=== PATIENT | female | born 1985 | race Two or more races ===

== ENCOUNTER 2016-10-24 01:47 | Inpatient (IN) | payer OTHER ==
[2016-10-24 02:51] LABS: BASOPHIL 0.2 % (0-2.0); EOSINOPHIL 0.2 % (0-4.5); MCHC 31.9 g/dl (32.0-36.0); MEAN CELL VOLUME 69.1 fl (80-96); MEAN PLT VOLUME 9.9 fl (7.5-11.1); NEUTROPHILS 78.4 % (42.8-82.8); PLATELET COUNT 164 K/MM3 (134-434); RDW 17.3 % (11.6-15.6); WHITE BLOOD COUNT 9.4 K/mm3 (4.0-10.0)
[2016-10-24 03:11] LABS: CALCIUM 8.6 mg/dL (8.5-10.1); CREATININE 0.5 mg/dL (0.55-1.02)
[2016-10-24] MEDS ORDERED: AMPICILLIN - 2 GM in SODIUM CHLORIDE 100 ML IVPB ONE (03:13)
[2016-10-24] MEDS ORDERED: BUTORPHANOL TARTRATE 1 MG/ML VIAL IVPUSH ONE (03:13)
[2016-10-24] MEDS ORDERED: PROMETHAZINE HCL 25 MG/1 ML VIAL IVPUSH ONE (03:13)
[2016-10-24] MEDS ORDERED: OXYTOCIN 15 UNITS/ LR 250 ML 250 ML IVPB SCH (03:15)
[2016-10-24] MEDS ORDERED: DEXTROSE 5%-LACTATED RINGERS 1,000 ML IV SCH (03:15)
--- NOTE | 2016-10-24 03:17 | PN ---
Progress Note (short form) - Note Progress Note: 3 am cx 8 cm 100 vx 0 , membrane bulging, fhr cat1 ,contraction irregular. wants pain meds
--- NOTE | 2016-10-24 03:31 | HP ---
Past Medical History - Primary Care Physician PCP:: Alvin Joe - Admission Chief Complaint: 39 weeks ,labor History of Present Illness: 30 yo f 39 + weeks, in labor, cx 8 cm 100 vx 0 mi ,bulging, fhr cat 1, irregular contraction History Source: Patient Limitations to Obtaining History: No Limitations - Past Surgical History Hx Myomectomy: No Hx Transabdominal Cerclage: No - Smoking History Smoking history: Smoker current status UNK Have you smoked in the past 12 months: No - Alcohol/Substance Use Hx Alcohol Use: No History of Substance Use: reports: None - Social History Usual Living Arrangement: Yes: With Spouse History of Recent Travel: No Home Medications - Allergies Allergies/Adverse Reactions: Allergies Allergy/AdvReac Type Severity Reaction Status Date / Time No Known Allergies Allergy Verified 10/24/16 02:45 - Home Medications Home Medications: Ambulatory Orders Ferrous Sulfate [Feosol] 325 mg PO DAILY 10/24/16 Vitamins (Sjr) - 1 tab PO DAILY 10/24/16 Review of Systems - Review of Systems Constitutional: reports: No Symptoms Eyes: reports: No Symptoms HENT: reports: No Symptoms Neck: reports: No Symptoms Cardiovascular: reports: No Symptoms Respiratory: reports: No Symptoms Gastrointestinal: reports: No Symptoms Genitourinary: reports: No Symptoms Breasts: reports: No Symptoms Reported Musculoskeletal: reports: No Symptoms Integumentary: reports: No Symptoms Neurological: reports: No Symptoms Endocrine: reports: No Symptoms Hematology/Lymphatic: reports: No Symptoms Psychiatric: reports: No Symptoms Physical Exam - Maternity Constitutional: Yes: Well Nourished, No Distress, Calm Eyes: Yes: WNL, Conjunctiva Clear, EOM Intact HENT: Yes: WNL, Atraumatic, Normocephalic Neck: Yes: WNL, Supple, Trachea Midline Cardiovascular: Yes: WNL, Regular Rate and Rhythm Breast(s): Yes: WNL - Abdominal Exam/OB Fundal Height: 40 Number of Fetuses: Single Presentation: Vertex Contractions: Yes Regularity: Irregular Intensity: Mod/Strong Monitor Mode: External Heart Rate Location: [facility] Category: I Accelerations: Uniform Decelerations: None - Vaginal Exam/OB Vaginal Bleediing: Bloody Show Speculum Exam: No Dilatation (cm): 8 cm Effacement (%): 100 Amniotic Membrane Status: Bulging Presentation: Vertex/Position Station: 0 - Physical Exam Musculoskeletal: Yes: WNL Extremities: Yes: WNL Edema: Yes Edema: LLE: Trace, RLE: Trace Deep Tendon Reflex Grade: Normal +2 - Labs Lab Results: CBC, BMP 10/24/16 02:30 10/24/16 02:30 Hemorrhage Risk Assessment - Risk Factors Risk Score: 0 Risk Level: Low Risk Assessment/Plan 39 weeks, labor, GBS positve, ampicillin, fhm, pain management
[2016-10-24 03:43] VITALS: BMI 26.2
[2016-10-24] MEDS: D5W-LR W/ 20 UNITS OXYTOCIN 1,000 ML IV SCH ×2 (04:36→10:00)
--- NOTE | 2016-10-24 04:59 | PN ---
Progress Note (short form) - Note Progress Note: patient was fully dilated at 355 am pushing , had episode of paxton cadia rate ti 60 , internal lead applied , pt on lt side o2 , pitocin off , ,, head delivered at 434 am, cord around neck once reduced , ant and post shoulder with no difficulty, live baby girl , first degree laceration repaired with 2 o chromic, placenta spont , complete, ebl 300cc, no complication. mother hold baby
[2016-10-24 05:15] LABS: ART PUNCT SITE OTHER; ARTERIAL BLD GAS O2 SATURATION 16.8 % (90-98.9); ARTERIAL BLOOD GAS BASE EXCESS -11.8 meq/l (-2-2); ARTERIAL BLOOD GAS HCO3 21.6 meq/L (22-26); ARTERIAL BLOOD GAS pH 7.03 (7.35-7.45); LPM/O2% 21%; PT. ON O2? no; TYPE OF O2 room air
[2016-10-24 05:16] LABS: ARTERIAL BLOOD GAS PO2 15.5 mmHg (80-100)
[2016-10-24] MEDS ORDERED: BISACODYL 10 MG SUPP.RECT RC PRN (06:00)
[2016-10-24] MEDS ORDERED: METHYLERGONOVINE MALEATE 0.2 MG/1 ML AMP IM PRN (06:00)
[2016-10-24] MEDS ORDERED: WITCH HAZEL 50% (TUCKS) 40 PAD/JAR PAD TP PRN (06:00)
[2016-10-24] MEDS ORDERED: BENZOCAINE 28 GM HEMORRHOIDAL OINTMENT TP PRN (06:00)
[2016-10-24] MEDS ORDERED: BENZOCAINE 20% 57 GM BOTTLE TP PRN (06:00)
[2016-10-24] MEDS: IBUPROFEN 600 MG TABLET (FP) PO PRN ×2 (07:37→14:32)
[2016-10-24] MEDS: ACETAMINOPHEN 325 MG TABLET (FP) PO PRN ×2 (07:38→14:33)
[2016-10-24 08:34] LABS: ACTIVATED PTT 28.8 SECONDS (26.9-34.4); INR 0.98 (0.82-1.09); PROTHROMBIN TIME (PATIENT) 10.8 SEC (9.98-11.88)
[2016-10-24] MEDS: FERROUS SO4 325 MG TABLET (FP) PO SCH (09:39)
[2016-10-24] MEDS: PRENATAL VITAMINS W/ FOLIC ACID TABLET (FP) PO SCH (09:39)
[2016-10-25] MEDS: IBUPROFEN 600 MG TABLET (FP) PO PRN ×2 (02:23→20:28)
[2016-10-25] MEDS: ACETAMINOPHEN 325 MG TABLET (FP) PO PRN ×2 (02:23→20:29)
[2016-10-25] MEDS ORDERED: SENNOSIDES/DOCUSATE COMBO (SENNA PLUS) TABLET (UD) PO PRN (06:00)
[2016-10-25] MEDS: FERROUS SO4 325 MG TABLET (FP) PO SCH (09:14)
[2016-10-25] MEDS: PRENATAL VITAMINS W/ FOLIC ACID TABLET (FP) PO SCH (09:14)
[2016-10-25] MEDS ORDERED: DIPHTH,PERTUSS(ACELL),TET 0.5 ML DISP.SYRIN IM ONE (10:00)
--- NOTE | 2016-10-25 10:16 | PN ---
Post Progress Note - Subjective Subjective: no complains Post Day: 1 Type of Delivery: Vital Signs: Vital Signs Temperature 98.3 F 10/25/16 08:41 Pulse Rate 66 10/25/16 08:41 Respiratory Rate 20 10/25/16 08:41 Blood Pressure 100/60 10/25/16 08:41 O2 Sat by Pulse Oximetry (%) 100 10/24/16 07:05 Breast Exam: Yes: Soft, Other (BF ). No: Engorged Uterus: Yes: Fundus Firm, Fundus below umbilicus Lochia: Yes: Rubra Lochia, amount: Moderate Extremities: Yes: Calves non-tender. No: Edema Perineum: Yes: Intact Activity: Ambulating - Labs Labs: CBC WBC 9.4 K/mm3 (4.0-10.0) 10/24/16 02:30 RBC 4.63 M/mm3 (3.60-5.2) 10/24/16 02:30 Hgb 10.2 GM/dL (10.7-15.3) L D 10/24/16 02:30 Hct 32.0 % (32.4-45.2) L D 10/24/16 02:30 MCV 69.1 fl (80-96) L 10/24/16 02:30 MCHC 31.9 g/dl (32.0-36.0) L 10/24/16 02:30 RDW 17.3 % (11.6-15.6) H D 10/24/16 02:30 Plt Count 164 K/MM3 (134-434) D 10/24/16 02:30 MPV 9.9 fl (7.5-11.1) 10/24/16 02:30 Neutrophils % 78.4 % (42.8-82.8) 10/24/16 02:30 Lymphocytes % 14.8 % (8-40) 10/24/16 02:30 Monocytes % 6.4 % (3.8-10.2) 10/24/16 02:30 Eosinophils % 0.2 % (0-4.5) 10/24/16 02:30 Basophils % 0.2 % (0-2.0) 10/24/16 02:30 Assessment/Plan stable. discharge tomorrow.
[2016-10-26] MEDS: FERROUS SO4 325 MG TABLET (FP) PO SCH (09:27)
[2016-10-26] MEDS: PRENATAL VITAMINS W/ FOLIC ACID TABLET (FP) PO SCH (09:27)
--- NOTE | 2016-10-26 09:27 | PN ---
Post Progress Note - Subjective Subjective: no complains Post Day: 2 Type of Delivery: Vital Signs: Vital Signs Temperature 98.6 F 10/25/16 20:15 Pulse Rate 103 H 10/25/16 20:15 Respiratory Rate 20 10/25/16 20:15 Blood Pressure 112/65 10/25/16 20:15 O2 Sat by Pulse Oximetry (%) 100 10/24/16 07:05 Breast Exam: Yes: Soft, Other (BF ). No: Engorged Uterus: Yes: Fundus Firm, Fundus below umbilicus Lochia: Yes: Rubra Lochia, amount: Moderate Extremities: Yes: Calves non-tender Perineum: Yes: Intact Activity: Ambulating - Labs Labs: CBC WBC 9.4 K/mm3 (4.0-10.0) 10/24/16 02:30 RBC 4.63 M/mm3 (3.60-5.2) 10/24/16 02:30 Hgb 10.2 GM/dL (10.7-15.3) L D 10/24/16 02:30 Hct 32.0 % (32.4-45.2) L D 10/24/16 02:30 MCV 69.1 fl (80-96) L 10/24/16 02:30 MCHC 31.9 g/dl (32.0-36.0) L 10/24/16 02:30 RDW 17.3 % (11.6-15.6) H D 10/24/16 02:30 Plt Count 164 K/MM3 (134-434) D 10/24/16 02:30 MPV 9.9 fl (7.5-11.1) 10/24/16 02:30 Neutrophils % 78.4 % (42.8-82.8) 10/24/16 02:30 Lymphocytes % 14.8 % (8-40) 10/24/16 02:30 Monocytes % 6.4 % (3.8-10.2) 10/24/16 02:30 Eosinophils % 0.2 % (0-4.5) 10/24/16 02:30 Basophils % 0.2 % (0-2.0) 10/24/16 02:30 Assessment/Plan stable. discharge today
[2016-10-26 09:57] VITALS: BP 114/68; PULSE 79; TEMP 98.7
--- NOTE | 2016-10-30 20:57 | DS ---
Physical Exam-TEAM SUPERVISOR Vital Signs: Vital Signs Temperature 98.7 F 10/26/16 09:55 Pulse Rate 79 10/26/16 09:55 Respiratory Rate 20 10/26/16 09:55 Blood Pressure 114/68 10/26/16 09:55 O2 Sat by Pulse Oximetry (%) 100 10/24/16 07:05 Constitutional: Yes: Well Nourished, No Distress, Calm Eyes: Yes: WNL, Conjunctiva Clear, EOM Intact HENT: Yes: WNL, Atraumatic, Normocephalic Neck: Yes: WNL, Supple, Trachea Midline Cardiovascular: Yes: WNL, Regular Rate and Rhythm Respiratory: Yes: WNL, Regular, CTA Bilaterally Gastrointestinal: Yes: WNL ...Rectal Exam: Yes: WNL Renal/: Yes: WNL ....Post : Yes: Uterus firm, Uterus non-tender, Slight lochia rubra Breast(s): Yes: WNL Musculoskeletal: Yes: WNL Extremities: Yes: WNL Edema: No Integumentary: Yes: WNL Neurological: Yes: WNL, Alert, Oriented ...Motor Strength: WNL Psychiatric: Yes: WNL, Alert, Oriented Labs: CBC, BMP 10/24/16 02:30 10/24/16 02:30 Delivery - Delivery Vaginal Delivery: Spontaneous Type of Anesthesia: Local Episiotomy/Laceration: Vaginal Extension/lac, 1st degree EBL (cc): 300 Delivery, Single - Stages of Labor Date 1st Stage Initiatied: 10/24/16 Time 1st Stage Initiated: 00:00 Date 2nd Stage Initiated: 10/24/16 Time 2nd Stage Initiated: 03:55 Date of Delivery: 10/24/16 Time of Delivery: 04:34 Time Placenta Delivered: 04:36 Placenta: Yes: Spontaneous - Condition of Infant Nursery Laborer/Curtain Supervisor Present: No Infant Gender: Female Weight: 6 lb 13 oz Position: Left, OA Total Hours ROM (Hrs/Mins): 1hr/46mins - 1 Minute Total Score: 8 5 Minutes Total Score: 9 - [place] Feeding Plan Initial Plan: Elected not to breastfeed exclusively throughout hospitalization Discharge Summary Reason For Visit: ADMIT-LABOR Procedures: Principal: Condition: Good - Instructions Diet, Activity, Other Instructions: Discharge Instructions * Out of Bed * * Regular Diet * Tena Care * Avoid sex for 6 weeks * rtc 6 weeks If you experience excessive bleeding or fever over 101 degrees, call doctor, the clinic or go to the Emergency Room. Referrals: Alvin Joe MD [Family Provider] - Disposition: HOME - Home Medications Comprehensive Discharge Medication List: Ambulatory Orders Ferrous Sulfate [Feosol] 325 mg PO DAILY 10/24/16 Vitamins (Sjr) - 1 tab PO DAILY 10/24/16 Ferrous Sulfate [Feosol] 325 mg PO DAILY 10/25/16 Vitamins (Sjr) - 1 tab PO DAILY tablet 10/25/16
== END 2016-10-26 12:15 | disposition home or self-care (01) | DRG 560 ==
LOC: JDEL 01:47 → JLDR 02:20 → J3W 08:01
PROVIDERS: ADMIT Obstetrics & Gynecology; ATTEND Obstetrics & Gynecology
PROC: 0HQ9XZZ Repair Perineum Skin, External Approach (ICD-10-PCS; principal; 2016-10-24)
PROC: 10E0XZZ Delivery of Products of Conception, External Approach (ICD-10-PCS; 2016-10-24)
DX: O70.0 First degree perineal laceration during delivery (principal); O99.824 Streptococcus B carrier state complicating childbirth; O69.81X0 Labor and delivery complicated by cord around neck, without compression, not applicable or unspecified; Z3A.39 39 weeks gestation of pregnancy; Z37.0 Single live birth
CPT/HCPCS: 36415; 36600; 59409; 80048; 82803; 85025; 85610; 85730; 86593; 86850; 86900; 86901; 90715

== ENCOUNTER 2019-05-14 22:15 | Inpatient (IN) | payer OTHER ==
[2019-05-14] MEDS ORDERED: DEXTROSE 5%-LACTATED RINGERS 1,000 ML IV ONE (23:15)
[2019-05-14] MEDS ORDERED: AMPICILLIN - 2 GM in SODIUM CHLORIDE 100 ML IVPB ONE (23:16)
[2019-05-14 23:26] LABS: BASO % 0.3 % (0-2.0); EOS % 0.3 % (0-4.5); HEMATOCRIT 31.8 % (32.4-45.2); HEMOGLOBIN 10.1 GM/dL (10.7-15.3); LYMPH % 14.4 % (8-40); MCH 21.7 pg (25.7-33.7); MCHC 31.9 g/dl (32.0-36.0); MEAN CELL VOLUME 68.2 fl (80-96); MEAN PLT VOLUME 9.3 fl (7.5-11.1); MONO % 5.2 % (3.8-10.2); NEUT % 79.8 % (42.8-82.8); PLATELET COUNT 187 K/MM3 (134-434); RBC 4.67 M/mm3 (3.60-5.2); WHITE BLOOD COUNT 8.7 K/mm3 (4.0-10.0)
[2019-05-14 23:35] VITALS: BMI 25.7
[2019-05-14 23:35] LABS: INR 1.01 (0.83-1.09); PROTHROMBIN TIME (PATIENT) 11.9 SEC (9.7-13.0)
[2019-05-14 23:38] LABS: ACTIVATED PTT 28.1 SECONDS (25.2-36.5)
[2019-05-14 23:50] LABS: ANISOCYTOSIS 1+; BLOOD UREA NITROGEN 5.9 mg/dL (7-18); CALCIUM 8.7 mg/dL (8.5-10.1); CREATININE 0.5 mg/dL (0.55-1.3); PLATELET ESTIMATE ADEQUATE; POTASSIUM 3.9 mmol/L (3.5-5.1)
[2019-05-15] MEDS ORDERED: OXYTOCIN 20 UNITS in 0.9% NS 20 UNIT/1,000 ML INFUS.BAG IV ONE ×2 (00:04→01:35)
--- NOTE | 2019-05-15 00:24 | HP ---
Past Medical History - Primary Care Physician PCP:: Alvin Joe - Admission Chief Complaint: 39 weeks, labor History of Present Illness: 33 yo f g 3 p2002 edc by sono 05/20/19 39 weeks, c/o contractiosns , cx 7 cm 100 vx 0 mi ,bulging, fhr cat 1, regular contraction, care at [facility] care. no complication, GBS unknown History Source: Patient Limitations to Obtaining History: No Limitations - Past Medical History ...: 3 ...Para: 2 ...Term: 2 ...: 0 ...Spon : 0 ...Induced : 0 ...Multiple Gestation: 0 ...LMP: 08/13/18 ... Weeks Gestation by Dates: 39.1 ...EDC by Dates: 05/20/19 ...EDC by Sono: 05/20/19 - Past Surgical History Hx Myomectomy: No Hx Transabdominal Cerclage: No - Smoking History Smoking history: Never smoked Have you smoked in the past 12 months: No - Alcohol/Substance Use Hx Alcohol Use: No History of Substance Use: reports: None - Social History History of Recent Travel: No Home Medications - Allergies Allergies/Adverse Reactions: Allergies Allergy/AdvReac Type Severity Reaction Status Date / Time shellfish derived AdvReac Verified 05/14/19 23:12 - Home Medications Home Medications: Ambulatory Orders Vitamins (Sjr) - 1 tab PO DAILY 05/14/19 Review of Systems - Review of Systems Constitutional: reports: No Symptoms Eyes: reports: No Symptoms HENT: reports: No Symptoms Neck: reports: No Symptoms Cardiovascular: reports: No Symptoms Respiratory: reports: No Symptoms Gastrointestinal: reports: No Symptoms Genitourinary: reports: No Symptoms Breasts: reports: No Symptoms Reported Musculoskeletal: reports: No Symptoms Integumentary: reports: No Symptoms Neurological: reports: No Symptoms Endocrine: reports: No Symptoms Hematology/Lymphatic: reports: No Symptoms Psychiatric: reports: No Symptoms Physical Exam - Maternity Vital Signs: Vital Signs Temperature 98.7 F 05/14/19 23:25 Pulse Rate 89 05/14/19 23:25 Respiratory Rate 18 05/14/19 23:25 Blood Pressure 113/57 L 05/14/19 23:25 O2 Sat by Pulse Oximetry (%) Constitutional: Yes: Well Nourished, No Distress, Calm Eyes: Yes: WNL, Conjunctiva Clear, EOM Intact HENT: Yes: WNL, Atraumatic, Normocephalic Neck: Yes: WNL, Supple, Trachea Midline Cardiovascular: Yes: WNL, Regular Rate and Rhythm Breast(s): Yes: WNL - Abdominal Exam/OB Fundal Height: 38 Number of Fetuses: Single Presentation: Vertex Contractions: Yes Regularity: Regular Intensity: Strong Monitor Mode: External Heart Rate Location: [facility] Category: I Accelerations: Non-Uniform Decelerations: None - Vaginal Exam/OB Vaginal Bleediing: Bloody Show Speculum Exam: No Dilatation (cm): 8 cm Effacement (%): 100 Amniotic Membrane Status: Bulging Presentation: Vertex/Position Station: -1 - Physical Exam Musculoskeletal: Yes: WNL Extremities: Yes: WNL Edema: Yes Edema: LLE: Trace, RLE: Trace Deep Tendon Reflex Grade: Normal +2 ...Motor Strength: WNL Psychiatric: Yes: WNL - Labs Lab Results: CBC, BMP 05/14/19 23:00 05/14/19 23:00 Hemorrhage Risk Assessment - Risk Factors Medium Risk Factors: Yes: None High Risk Factors: Yes: None Risk Score: 1 Risk Level: Medium Risk Problem List - Problems (1) with 39 completed weeks gestation Code(s): Z3A.39 - 39 WEEKS GESTATION OF (2) Labor established Code(s): XPV4801 - Assessment/Plan admit fhm anticipate vaginal delivery soon
[2019-05-15] MEDS ORDERED: METHYLERGONOVINE MALEATE 0.2 MG/1 ML AMP IM PRN (00:27)
[2019-05-15] MEDS ORDERED: BISACODYL 10 MG SUPP.RECT RC PRN (00:27)
[2019-05-15] MEDS ORDERED: BENZOCAINE 28 GM HEMORRHOIDAL OINTMENT TP PRN (00:27)
[2019-05-15] MEDS ORDERED: WITCH HAZEL 50% (TUCKS) 40 PAD/JAR PAD TP PRN (00:27)
[2019-05-15] MEDS ORDERED: BENZOCAINE 20% 57 GM BOTTLE TP PRN (00:27)
[2019-05-15] MEDS ORDERED: OXYTOCIN 20 UNITS in 0.9% NS 20 UNIT/1,000 ML INFUS.BAG IV SCH (00:45)
[2019-05-15] MEDS ORDERED: IBUPROFEN 600 MG TABLET (FP) PO ONE (01:33)
[2019-05-15] MEDS: IBUPROFEN 600 MG TABLET (FP) PO PRN ×3 (01:35→21:18)
[2019-05-15] MEDS: ACETAMINOPHEN 325 MG TABLET (FP) PO PRN ×3 (04:13→21:19)
[2019-05-15] MEDS: FERROUS SO4 325 MG TABLET (FP) PO SCH ×2 (10:16→21:19)
[2019-05-15] MEDS: PRENATAL VITAMINS W/ FOLIC ACID TABLET (FP) PO SCH (10:16)
--- NOTE | 2019-05-15 10:39 | PN ---
Delivery - Delivery Vaginal Delivery: Spontaneous Type of Anesthesia: Local (head delivered , ant. and post. shoulder with no difficulty , no complication 9/9), None Episiotomy/Laceration: Periurethral Extnsion/lac, 1st degree EBL (cc): 300 Delivery, Single - Stages of Labor Date 1st Stage Initiatied: 05/14/19 Time 1st Stage Initiated: 21:30 Date 2nd Stage Initiated: 05/14/19 Time 2nd Stage Initiated: 23:45 Date of Delivery: 05/15/19 Time of Delivery: 00:06 Time Placenta Delivered: 00:10 - Condition of Aboriginal Education Teacher/Olericulture Teacher Present: No Gender: Male Weight: 7 lb 2 oz Position: Left, OA Total Hours ROM (Hrs/Mins): 25M - 1 Minute Total Score: 9 5 Minutes Total Score: 9 - [place] Feeding Plan Initial Plan: Elected not to breastfeed exclusively throughout hospitalization
--- NOTE | 2019-05-16 06:46 | PN ---
Progress Note (short form) - Note Progress Note: ppd 1s/p , no c/o, voids ok, no excess vaginal bleeding CBC, BMP 05/14/19 23:00 05/14/19 23:00 Last Vital Signs Temp Pulse Resp BP Pulse Ox 97.6 F 73 20 106/52 L 05/15/19 22:07 05/15/19 22:07 05/15/19 22:07 05/15/19 22:07 abdomen soft, no distension, no va uterus firm, non tender lochia mild no calf tenderness plan ambulate, cbc plan for d/c home in am Problem List - Problems (1) with 39 completed weeks gestation Code(s): Z3A.39 - 39 WEEKS GESTATION OF (2) Labor established Code(s): EGJ8311 -
[2019-05-16 08:00] LABS: BASO % 0.4 % (0-2.0); EOS % 0.6 % (0-4.5); HEMATOCRIT 30.3 % (32.4-45.2); HEMOGLOBIN 9.7 GM/dL (10.7-15.3); LYMPH % 26.2 % (8-40); MCH 22.1 pg (25.7-33.7); MCHC 31.9 g/dl (32.0-36.0); MEAN CELL VOLUME 69.3 fl (80-96); MEAN PLT VOLUME 9.8 fl (7.5-11.1); MONO % 5.6 % (3.8-10.2); NEUT % 67.2 % (42.8-82.8); PLATELET COUNT 186 K/MM3 (134-434); RBC 4.37 M/mm3 (3.60-5.2); RDW 16.4 % (11.6-15.6); WHITE BLOOD COUNT 7.8 K/mm3 (4.0-10.0)
[2019-05-16] MEDS: FERROUS SO4 325 MG TABLET (FP) PO SCH ×2 (09:37→21:01)
[2019-05-16] MEDS: IBUPROFEN 600 MG TABLET (FP) PO PRN (09:37)
[2019-05-16] MEDS: PRENATAL VITAMINS W/ FOLIC ACID TABLET (FP) PO SCH (09:37)
[2019-05-16] MEDS: ACETAMINOPHEN 325 MG TABLET (FP) PO PRN (09:38)
[2019-05-16] MEDS ORDERED: SENNOSIDES/DOCUSATE COMBO (SENNA PLUS) TABLET (UD) PO PRN (22:00)
--- NOTE | 2019-05-17 07:27 | DS ---
Physical Examination Vital Signs: Vital Signs Temperature 98.0 F 05/16/19 20:50 Pulse Rate 95 H 05/16/19 20:50 Respiratory Rate 20 05/16/19 20:50 Blood Pressure 117/60 05/16/19 20:50 O2 Sat by Pulse Oximetry (%) Findings/Remarks: Ambulating, breast feeding, lochia decreased, passing flatus, and tolerating PO Constitutional: Yes: No Distress, Calm HENT: Yes: Atraumatic Neck: Yes: Supple Cardiovascular: Yes: Regular Rate and Rhythm Gastrointestinal: Yes: Soft, Other (fundus is firm) ...Rectal Exam: Yes: Deferred, Other Renal/: Yes: WNL Breast(s): Yes: Other (deferred) Musculoskeletal: Yes: WNL Extremities: Yes: WNL Edema: LLE: Trace, RLE: Trace Integumentary: Yes: WNL Neurological: Yes: Alert, Oriented ...Motor Strength: WNL Psychiatric: Yes: Alert, Oriented Labs: CBC, BMP 05/16/19 06:30 05/14/19 23:00 Discharge Summary Problems reviewed: Yes Reason For Visit: Delivery Current Active Problems Labor established (Acute) with 39 completed weeks gestation (Acute) Procedures: Principal: Vaginal delivery Hospital Course: Uncomplicated delivery and recovery Plan of Treatment: Follow up post- Condition: Stable - Instructions Diet, Activity, Other Instructions: Please return to regular diet and activity as tolerated. Follow up in 6-8wks for visit. Call MD with any question concerns Referrals: Alvin Joe MD [Staff Physician] - Disposition: HOME - Home Medications Comprehensive Discharge Medication List: Ambulatory Orders Vitamins (Sjr) - 1 tab PO DAILY 05/14/19 Ibuprofen 600 mg PO Q6H PRN #14 tablet 05/17/19
--- NOTE | 2019-05-17 08:51 | PN ---
Progress Note (short form) - Note Progress Note: Patient counseled regarding circumcision and for informed consent. Patient and FOB are undecided regarding the procedure. All questions answered and additional time for decision making allowed as requested by them. Patient have decided not to proceed with circumcision after careful consideration.
[2019-05-17] MEDS: PRENATAL VITAMINS W/ FOLIC ACID TABLET (FP) PO SCH (10:24)
[2019-05-17] MEDS: FERROUS SO4 325 MG TABLET (FP) PO SCH (10:24)
[2019-05-17 11:10] VITALS: BP 101/56; PULSE 68; TEMP 98.6
== END 2019-05-17 14:35 | disposition home or self-care (01) | DRG 560 ==
LOC: JLDR 22:15 → J3W 05-15 03:50
PROVIDERS: ADMIT Obstetrics & Gynecology; ATTEND Obstetrics & Gynecology
PROC: 10E0XZZ Delivery of Products of Conception, External Approach (ICD-10-PCS; principal; 2019-05-15)
PROC: 0HQ9XZZ Repair Perineum Skin, External Approach (ICD-10-PCS; 2019-05-15)
DX: O70.0 First degree perineal laceration during delivery (principal); Z3A.39 39 weeks gestation of pregnancy; Z37.0 Single live birth
CPT/HCPCS: 36415; 36600; 59409; 80048; 82803; 85025; 85610; 85730; 86593; 86850; 86900; 86901; 87389

== ENCOUNTER 2019-08-05 05:11 | Day surgery (SDC) | payer OTHER ==
[2019-08-01 13:42] VITALS: BMI 23.2
[2019-08-05] MEDS ORDERED: BUPIVACAINE HCL/PF 0.5% (5 MG/ML) 30 ML VIAL IJ ONE ×2 (10:03→11:20)
[2019-08-05] MEDS ORDERED: MIDAZOLAM HCL 2 MG/2 ML SINGLE DOSE VIAL ONE (10:14)
--- NOTE | 2019-08-05 10:59 | HP ---
History & Physical Update - History History: No Change - Physical Physical: No Change - Assessment Assessment: No Change - Plan Plan: No Change
[2019-08-05] MEDS ORDERED: KETOROLAC TROMETHAMINE 30 MG/1 ML VIAL ONE (11:34)
[2019-08-05] MEDS ORDERED: LIDOCAINE HCL/PF 2% SDV 5ML VIAL ONE (11:34)
[2019-08-05] MEDS ORDERED: DEXAMETHASONE SOD PHOSPHATE 4 MG/1 ML VIAL ONE (11:34)
[2019-08-05] MEDS ORDERED: NEOSTIGMINE METHYLSULFATE 0.5 MG/ML - 10 ML MDV ONE (12:13)
[2019-08-05] MEDS ORDERED: GLYCOPYRROLATE 0.2 MG/1 ML VIAL ONE (12:13)
--- NOTE | 2019-08-05 13:16 | SURG ---
Surgery Arboreal Scientist Note Arboreal Scientist: Alex Villegas PA-C (Suzy) Date of Service: 08/05/19 Diagnosis: Multiparity Procedure: Laparoscopic bilateral salpingectomy I was present for the entirety of the operative procedure. For further detail, please refer to operative report.
[2019-08-05] MEDS ORDERED: ONDANSETRON 4 MG/2 ML VIAL ONE (14:44)
[2019-08-05] MEDS ORDERED: ONDANSETRON 4 MG/2 ML VIAL IVPB ONE (14:50)
[2019-08-05 15:04] VITALS: TEMP 97.3
[2019-08-05] MEDS ORDERED: oxyCODONE HCL 5 MG TABLET PO PRN ×2 (15:25)
[2019-08-05] MEDS ORDERED: ONDANSETRON 4 MG/2 ML VIAL IVPUSH PRN (15:25)
[2019-08-05] MEDS ORDERED: LACTATED RINGERS SOLUTION 1,000 ML IV SCH (15:30)
[2019-08-05 15:51] LABS: BASO % 0.1 % (0-2.0); EOS % 0.1 % (0-4.5); HEMATOCRIT 35.4 % (32.4-45.2); HEMOGLOBIN 11.5 GM/dL (10.7-15.3); LYMPH % 8.5 % (8-40); MCH 23.6 pg (25.7-33.7); MCHC 32.6 g/dl (32.0-36.0); MEAN CELL VOLUME 72.4 fl (80-96); MEAN PLT VOLUME 8.8 fl (7.5-11.1); MONO % 0.9 % (3.8-10.2); NEUT % 90.4 % (42.8-82.8); PLATELET COUNT 204 K/MM3 (134-434); RBC 4.89 M/mm3 (3.60-5.2); RDW 19.6 % (11.6-15.6); WHITE BLOOD COUNT 10.3 K/mm3 (4.0-10.0)
--- NOTE | 2019-08-05 16:19 | OP ---
Operative Note - Note: Operative Date: 08/05/19 (dic # [id number]) Pre-Operative Diagnosis: Multiparity desiring sterilization Operation: Laparoscopic bilateral salpingectomy. Findings: See dictation Implants: none Post-Operative Diagnosis: Same as Pre-op Surgeon: Raudel Perez Outsole Compressor: Jose Rincon (general surgery attending) Anesthesia: General Specimens Removed: bilateral fallopian tubes Estimated Blood Loss (mls): 75 Operative Report Dictated: Yes
[2019-08-05 19:20] VITALS: BP 130/80; PULSE 73
--- NOTE | 2019-08-05 23:05 | OP ---
DATE OF OPERATION: 08/05/2019 ATTENDING SURGEON: Eric Perez M.D. PREOPERATIVE DIAGNOSIS: A 33-year-old multiparous female desires sterilization via bilateral salpingectomy. POSTOPERATIVE DIAGNOSIS: A 33-year-old multiparous female desires sterilization via bilateral salpingectomy. PROCEDURE: Laparoscopic bilateral salpingectomy, intraoperative general surgery consult. ATTENDING SURGEON: Eric Perez MD. NEWS COMMENTATOR: JERONIMO Johnson. INTRAOPERATIVE GENERAL SURGERY CONSULT: Jose Rincon MD. ANESTHESIA: General. ESTIMATED BLOOD LOSS FOR THE PROCEDURE: 75 mL. INTRAVENOUS FLUIDS: Per Anesthesia. URINE: As documented. COMPLICATIONS: Incidental uterine perforation with HUMI manipulator. FINDINGS: Normal anterior abdominal wall anatomy. Normal external genitalia and vaginal mucosa. Cervix was slightly stenotic. No vaginal wall defects noted. Intraabdominal findings reveal normal appearing viscera, no active bleeding or evidence of trauma at the point of entry. Perforation at the left anterior fundal aspect of the uterus by the HUMI manipulator. No evidence of trauma noted to surrounding small and large intestines. No active bleeding from the uterine defect. Bilateral tubes and ovaries consistent with normal anatomy. SPECIMEN: Bilateral fallopian tubes. DESCRIPTION OF PROCEDURE: The patient was taken to the operating room where anesthesia was found to be adequate. She was then prepped and draped in normal sterile fashion. Luo catheter was placed. Appropriate timeout took place. Metal retractors were used to visualize the anterior aspect of the cervix, which was grasped with a Med tenaculum. The cervix was noted to be slightly stenotic and progressively dilated with Hegar metal dilators to accommodate the HUMI manipulator. Dilation was performed without difficulty. The HUMI manipulator was introduced to a depth of 8 cm and the balloon to be inflated. No active bleeding was noted, and all instruments were retrieved from the vagina. Attention was then directed to anterior abdominal wall where an infraumbilical incision was made with the scalpel to accommodate a Selwyn trocar. The subcutaneous tissues were bluntly dissected off. The fascia was elevated with Kochers and transected. The underlying peritoneum was entered bluntly. The Selwyn trocar was placed without difficulty. Insufflating media was activated. Appropriate placement was confirmed with the laparoscope. Inspection of the intrauterine cavity revealed scant dark blood in the anterior cul-de-sac. Large bowel in the pelvis and Trendelenburg took place. Attempts to elevate the uterus with the HUMI manipulator were unsuccessful. Right lower quadrant 5-mm trocar was placed under constant visualization without difficulty followed by a left lower quadrant one. Atraumatic grasper was utilized to mobilize the large bowel immediately over the uterus as it was elevated with the HUMI manipulator. Balloon tip was noted protruding past the uterine fundus. The bowel immediately adjacent to the balloon tip showed no evidence of active bleeding or trauma. Intraoperative general surgical consult was called, and Dr. Rincon to evaluate intestines. Dr. Rincon evaluated large intestine and small intestine adjacent to the area, complete evaluation, walking of the bowel took place. No abnormalities encountered per general surgery. Please refer to intraoperative consult by Dr. Rincon for further details. The HUMI manipulator was deflated under constant visualization and removed without difficulty. No active bleeding from the perforation site. Attention then was redirected to the left fallopian tube, which was elevated by being followed to its fimbriated end. It was transected with the LigaSure instrument without difficulty, as the tube was elevated from any surrounding viscera. Excellent hemostasis from the surgical field. Attention was then directed to the contralateral fallopian tube, which underwent exact same procedure without difficulty. Once again, no active bleeding was noted from the fundal perforation defect during all this time. Irrigation of the pelvis took place, and no active bleeding was noted. Secondary inspection of the abdominal viscera revealed no abnormal findings. The fallopian tubes were removed from the infraumbilical port under constant visualization without difficulty. Insufflating media was evacuated partially from the abdominal cavity as the perforation area was under constant visualization and no active bleeding noted. The left lower quadrant port was removed followed by the right lower quadrant one without active bleeding. All insufflating media was evacuated from the abdomen. The laparoscope was removed , and the infraumbilical port removed. The fascial incision was reapproximated by tying previously placed anchoring stitches of 0 Polysorb. Excellent reapproximation achieved, and the fascial defect obliterated, confirmation by the surgeon. The skin incisions were reapproximated with 4-0 Biosyn subcutaneous sutures. Excellent reapproximation was achieved. Attention was then directed to the vaginal area where no active bleeding was noted from the cervical os, and the Luo catheter was removed and clear urine noted. Patient going to the recovery room in stable condition. Instrument count was reported as correct x2. CBC 2 hours postoperative will be obtained prior to discharge. ERIC PEREZ MD [id number] cc: Jose Rincon M.D. MTDA[place]ust[place]
--- NOTE | 2019-08-08 16:56 | PATH ---
Surgical Pathology Report Patient Name: ROSEMARIE IVEY [facility]. Rec. #: [id number] /Age/Gender: 1985 (Age: 33) / F Account: [id number] Location: [facility] SURGICAL Taken: 08/05/2019 Received: 08/05/2019 Reported: 08/08/2019 Physicians: Raudel Preez MD Specimen(s) Received BILATERAL FALLOPIAN TUBE Clinical History Multiparity Final Diagnosis BILATERAL FALLOPIAN TUBES, SALPINGECTOMY: TWO PORTIONS OF FALLOPIAN TUBES WITH PARATUBAL CYST. COMPLETE CROSS SECTION OF THE FALLOPIAN TUBE LUMENS IDENTIFIED. Electronically Signed Fawad Betts M.D. Gross Description Received in formalin labeled "bilateral fallopian tubes," are 2 fimbriated fallopian tubes averaging 2.5 cm in length. Arbitrarily designated fallopian tube "1" is allen purple and smooth with a 1.2 cm in greatest dimension paratubal cyst attached. Sectioning reveals an unremarkable lumen. Arbitrarily designated fallopian tube "2" is palmer purple and smooth. Sectioning reveals an unremarkable lumen. Barber Stylist sections are submitted in 4 cassettes as follows: 1-fallopian tube "1" fimbria; 2-cross sections of fallopian tube "1" with paratubal cyst; 3-fallopian tube "2" fimbria; 4-cross sections of fallopian tube "2". 08/05/201908/05/2019
== END 2019-08-05 19:15 | disposition home or self-care (01) ==
LOC: JASU-SURG 05:11
PROVIDERS: ATTEND Student in an Organized Health Care Education/Training Program
PROC: 0U574ZZ Destruction of Bilateral Fallopian Tubes, Percutaneous Endoscopic Approach (ICD-10-PCS; principal; 2019-08-05 10:30)
DX: Z30.2 Encounter for sterilization (principal); N99.71 Accidental puncture and laceration of a genitourinary system organ or structure during a genitourinary system procedure
CPT/HCPCS: 36415; 85025; 88302-TC; 94760

== ENCOUNTER 2019-09-13 08:52 | Emergency (ER) | payer OTHER ==
[2019-09-13 09:02] VITALS: BMI 22.6
--- NOTE | 2019-09-13 10:00 | PDOC ---
History of Present Illness - General Chief Complaint: Syncope/Near Syncope Stated Complaint: Blood Pressure Problem Time Seen by Provider: 09/13/19 09:50 - History of Present Illness Initial Comments: 09/13/19 10:00 33 yo F with h/o bilateral salpingectomy (08-05-19), who p/w diarrhea, syncope collapse. Patient states that she developed profuse watery stools 09-07-18 following return from [facility] 09-06-18. States that she was treated with Keflex BID while in [facility] for infected surgical site incision with one retained suture from prior salpingectomy [place]. Patient now with loose, watery stools x 1 day, multiple episodes. States that she was ambulating from bathroom to bedroom at approximately 7:30 AM, when she felt lightheaded and collapsed. Does not recall how she fell, but states that her put her into the bed, and she had LOC. States that said she was unconsious x 2 days. Does not recall head trauma. Denies neck, back pain. Endorses right posterior neck/shoulder pain, worse with all movement. Patient denies HANKS, vision change, palpitations, cough, wheezing, orthopena, PND , leg swelling/pain, N/V, F,C, CP, SOB, urinary complaints, hematuria, BPR, abdominal pain, BPR, constipation, weakness, sensory changes. PMHx: as noted above. Denies h/o ACS. ROS: as noted SHx: Denies Etoh, IVDA, tobacco use Allergies: NKDA Past History - Past Medical History Allergies/Adverse Reactions: Allergies Allergy/AdvReac Type Severity Reaction Status Date / Time shellfish derived AdvReac Verified 08/01/19 13:50 Home Medications: Ambulatory Orders Vitamins (Sjr) - 1 tab PO DAILY 05/14/19 Folic Acid 1 mg PO DAILY 08/01/19 Iron 18 mg PO DAILY 08/01/19 Acetaminophen [Tylenol] 325 mg PO Q4H PRN #14 capsule MDD 5 08/05/19 Ibuprofen 600 mg PO Q6H PRN #14 tablet 08/05/19 Anemia: Yes Asthma: No Cancer: No Cardiac Disorders: No CVA: No COPD: No CHF: No Dementia: No Diabetes: No GI Disorders: No Disorders: No HTN: No Hypercholesterolemia: No Liver Disease: No Seizures: No Thyroid Disease: No - Immunization History Immunization Up to Date: Yes - Psycho Social/Smoking Cessation Hx Smoking History: Never smoked Have you smoked in the past 12 months: No Hx Alcohol Use: No Drug/Substance Use Hx: No Substance Use Type: None Hx Substance Use Treatment: No Cardiac Specific PMH - Complaint Specific PMHX Pacemaker: No Review of Systems - Review of Systems Comments:: 09/13/19 10:12 GENERAL/CONSTITUTIONAL: No fever or chills. No weakness. HEAD, EYES, EARS, NOSE AND THROAT: No change in vision. No ear pain or discharge. No sore throat. CARDIOVASCULAR: No chest pain or shortness of breath RESPIRATORY: No cough, wheezing, or hemoptysis. GASTROINTESTINAL: + diarrhea. No nausea, vomiting, constipation. GENITOURINARY: No dysuria, frequency, or change in urination. MUSCULOSKELETAL: No joint or muscle swelling or pain. No neck or back pain. SKIN: No rash NEUROLOGIC: + lightheadedness. No headache, vertigo, loss of consciousness, or change in strength/sensation. ENDOCRINE: No increased thirst. No abnormal weight change HEMATOLOGIC/LYMPHATIC: No anemia, easy bleeding, or history of blood clots. ALLERGIC/IMMUNOLOGIC: No hives or skin allergy. *Physical Exam - Vital Signs Last Vital Signs Temp Pulse Resp BP Pulse Ox 98.0 F 82 18 110/59 L 100 09/13/19 14:09 09/13/19 14:09 09/13/19 14:09 09/13/19 14:09 09/13/19 14:09 - Physical Exam 09/13/19 10:12 GENERAL: Awake, alert, and fully oriented, in no acute distress HEAD: No signs of trauma, normocephalic, atraumatic EYES: PERRLA, EOMI, sclera anicteric, conjunctiva clear ENT: + dry mucous membranes. Hearing grossly normal, nares patent, oropharynx clear without exudates. NECK: Normal ROM, supple, no lymphadenopathy, JVD, or masses LUNGS: No distress, speaks full sentences, clear to auscultation bilaterally HEART: Regular rate and rhythm, normal S1 and S2, no murmurs, rubs or gallops, peripheral pulses normal and equal bilaterally. ABDOMEN: Soft, nontender, normoactive bowel sounds. No guarding, no rebound. No masses BACK: Neg midline, or parsapinal lumbar-cervical ttp. Neg bony deformity, or step-off. Neg skin change. EXTREMITIES : Normal inspection, Normal range of motion, no edema. No clubbing or cyanosis NEUROLOGICAL: Cranial nerves II through XII grossly intact. Normal speech, normal gait, no focal sensorimotor deficits SKIN: Warm, Dry, normal turgor, no rashes or lesions noted ED Treatment Course - LABORATORY CBC & Chemistry Diagram: 09/13/19 09:02 09/13/19 09:02 - ADDITIONAL ORDERS Additional order review: Laboratory Results 09/13/19 09/13/19 09/13/19 12:05 09:02 09:02 Sodium 142 Potassium 3.7 Chloride 112 H Carbon Dioxide 25 Anion Gap 5 L BUN 10.5 Creatinine 0.7 Est GFR (CKD-EPI)AfAm 133.81 Est GFR (CKD-EPI)NonAf 115.45 Random Glucose 91 Calcium 8.0 L Total Bilirubin 0.2 AST 23 ALT 44 Alkaline Phosphatase 100 Creatine Kinase 62 Troponin I < 0.02 < 0.02 Total Protein 6.1 L Albumin 3.0 L Serum , Qual Negative 09/13/19 09:02 RBC 4.66 MCV 75.3 L MCHC 32.8 RDW 15.7 H D MPV 8.9 Neutrophils % 70.4 D Lymphocytes % 23.0 D Monocytes % 5.3 D Eosinophils % 0.9 D Basophils % 0.4 D - RADIOLOGY Radiology Studies Ordered: Category Date Time Status HEAD CT WITHOUT CONTRAST [CT] Stat CT Scan 09/13/19 10:06 Completed SHOULDER-RIGHT [RAD] Stat Radiology 09/13/19 10:05 Completed - Medications Given in the ED: ED Medications Discontinued Medications Generic Name Dose Route Start Last Admin Trade Name Freq PRN Reason Stop Dose Admin Sodium Chloride 1,000 mls @ 1,000 mls/hr 09/13/19 10:02 09/13/19 10:06 Normal Saline - IV 09/13/19 11:01 1,000 mls/hr ASDIR STA Administration Medical Decision Making - Medical Decision Making 09/13/19 10:05 33 yo F with h/o bilateral salpingectomy (08-05-19), who p/w diarrhea, syncope collapse. BP 104/67, vitals otherwise wnl, AF, A&OX3. Physical exam unremarkable. CTH r/o skull fracture, hemorrhage, hemtaoma. C-spine neg per nexus. No evidence basilar skull fracture. Will assess for cardiac dysarrtyhmias , hypoglycemia, electrolyte abnml, metabolic and toxic derangements, acid-base disturbances, infection. Will provide IV fluid hydration, reassess. 09/13/19 10:32 ED Course: NS 2 L EKG: NSR with absent ANA LAURA, STD. TWI III, AvF. QT 469. Nml axis. Nml R wave progression. Absent Q waves. 09/13/19 10:43 Laboratory Tests 09/13/19 09/13/19 09/13/19 09:02 09:02 09:02 WBC 7.9 Hgb 11.5 Hct 35.1 Plt Count 226 Sodium 142 Potassium 3.7 BUN 10.5 Creatinine 0.7 Troponin I < 0.02 Serum , Qual Negative 09/13/19 11:50 Laboratory Tests 09/13/19 09/13/19 09/13/19 09:02 09:02 09:02 WBC 7.9 Hgb 11.5 Hct 35.1 Plt Count 226 Sodium 142 Potassium 3.7 BUN 10.5 Creatinine 0.7 Troponin I < 0.02 Serum , Qual Negative 09/13/19 12:07 CTH: Unremarkable R SHOULDER RAD: Unremarkable 09/13/19 12:14 EKG: NSR with absent ANA LAURA, STD. Nml interval duration and axis. Nml R wave progression. Absent Q waves. 09/13/19 12:26 Repeat EKG unremarkable 09/13/19 13:19 Repeat trop neg stable for d/c with return precautions tolerating PO intake. Discharge - Discharge Information Problems reviewed: Yes Clinical Impression/Diagnosis: Syncope and collapse Diarrhea Qualifiers: Diarrhea type: unspecified type Qualified Code(s): R19.7 - Diarrhea, unspecified Condition: Improved Disposition: HOME - Admission No - Follow up/Referral Referrals: Nandini Head MD [Primary Care Provider] - - Patient Discharge Instructions Patient Printed Discharge Instructions: DI for Syncope in Adults (Fainting), DI for Diarrhea and Traveler's Diarrhea -- Adult Additional Instructions: Please return to the emergency department with any new or worsening symptoms or concerns. Please follow up with your primary care physician within 72 hours. - Post Discharge Activity
[2019-09-13] MEDS ORDERED: SODIUM CHLORIDE 1,000 ML IV STA (10:02)
[2019-09-13 10:05] LABS: BASO % 0.4 % (0-2.0); EOS % 0.9 % (0-4.5); HEMATOCRIT 35.1 % (32.4-45.2); HEMOGLOBIN 11.5 GM/dL (10.7-15.3); MCH 24.7 pg (25.7-33.7); MCHC 32.8 g/dl (32.0-36.0); MEAN CELL VOLUME 75.3 fl (80-96); MEAN PLT VOLUME 8.9 fl (7.5-11.1); MONO % 5.3 % (3.8-10.2); NEUT % 70.4 % (42.8-82.8); PLATELET COUNT 226 K/MM3 (134-434); RBC 4.66 M/mm3 (3.60-5.2); RDW 15.7 % (11.6-15.6); WHITE BLOOD COUNT 7.9 K/mm3 (4.0-10.0)
[2019-09-13 10:39] LABS: ALK PHOS 100 U/L (45-117); ANION GAP 5 MMOL/L (8-16); BILIRUBIN,TOTAL 0.2 mg/dL (0.2-1); BLOOD UREA NITROGEN 10.5 mg/dL (7-18); CHLORIDE 112 mmol/L (98-107); CO2 25 mmol/L (21-32); CREATININE 0.7 mg/dL (0.55-1.3); GLUCOSE,RANDOM 91 mg/dL (74-106); POTASSIUM 3.7 mmol/L (3.5-5.1); SGOT/AST 23 U/L (15-37); SGPT/ALT 44 U/L (13-61); SODIUM 142 mmol/L (136-145); TOT PROT 6.1 g/dl (6.4-8.2)
--- NOTE | 2019-09-13 11:04 | PDOC ---
Documentation entered by Oscar Hanson SCRIBE, acting as scribe for Jovany Bermeo MD. Jovany Bermeo MD: This documentation has been prepared by the Valentin topete Daniel, SCRIBE, under my direction and personally reviewed by me in its entirety. I confirm that the documentation accurately reflects all work, treatment, procedures, and medical decision making performed by me. Attending Attestation - Resident Resident Name: [email or web address] - ED Attending Attestation I have performed the following: I have examined & evaluated the patient, The case was reviewed & discussed with the resident, I agree w/resident's findings & plan, Exceptions are as noted - HPI HPI: 09/13/19 10:15 The patient is a 33 year old female with a past medical history of tubal ligation Jul 2019 here today for evaluation of diarrhea x 6 days and syncope this morning. The patient reports that she returned from the [facility] on 09/06/2019 and has had 3-4 episodes of watery non bloody diarrhea daily since then. She states that she was started on keflex here 5 days ago for a retained suture from her salpingectomy. She reports that today after defecating she got up from the toilet, felt lightheaded and nauseous. Attempted to walk back to her bed and passed out, and woke up in her bed. +LOC, unknown for how long. Per her , she was out for about 1 minute and he carried her into bed. Unknown headstrike. Currently, she states that she has right upper back pain that is worse with palpation. Denies pain or injury elsewhere. Denies hx similar sxs Patient denies headache, lightheadedness, blurry vision, focal weakness/ numbness. Denies fever, chills. Denies chest pain, shortness of breath. Denies nausea, vomiting, abdominal pain. Allergies: shellfish derived PCP: Nandini Head - Physicial Exam PE: 09/13/19 10:15 GENERAL: Awake, alert, and fully oriented, in no acute distress HEAD: No signs of trauma, no bony ttp. EYES: PERRLA, EOMI, sclera anicteric, conjunctiva clear ENT: Auricles normal inspection, hearing grossly normal, nares patent, oropharynx clear without exudates. Dry MM NECK: Normal ROM, supple, no lymphadenopathy, JVD, or masses LUNGS: Breath sounds equal, clear to auscultation bilaterally. No wheezes, and no crackles HEART: Regular rate and rhythm, normal S1 and S2, no murmurs, rubs or gallops ABDOMEN: Soft, nontender, normoactive bowel sounds. No guarding, no rebound. No masses EXTREMITIES: Normal range of motion, no edema. No clubbing or cyanosis. No cords , erythema, or tenderness BACK: No midline spinal tenderness in cervical/thoracic/lumbar region. No stepoffs or deformities. +ttp to R paraspinal area near T3/T4 NEUROLOGICAL: Normal speech, cranial nerves intact, negative pronator drift, 5/ 5 strength in all 4 extremities, normal sensation to light touch in all 4 extremities, normal cerebellar exam, normal gait, normal reflexes and tone SKIN: Warm, Dry, normal turgor, no rashes or lesions noted. - Medical Decision Making 09/13/19 11:03 33yo F presents to the ED with syncopal episode in the setting of diarrheal illness. Vitals with borderline low blood pressure, heart rate within normal limits. Exam with dry mucous membranes, but well-appearing patient with no abdominal tenderness palpation. Likely vasovagal syncope in the setting of dehydration given prodrome of nausea and straining while defecating. We will plan for EKG, labs, test, IV fluids. Given unknown head strike, will obtain a CT of the head. She clears [place] C- spine criteria. Will reassess 09/13/19 11:11 EKG with T wave flattening/inversions No old EKG to compare Will rpt EKG and trop for stability Pt feeling much better with fluids 09/13/19 14:00 Rpt EKG stable Rpt trop neg Pt feeling significantly better, eager for DC home Labs wnl She is ambulating in the ED asymptomatic Clinically stable for DC home I discussed the physical exam findings, ancillary test results and final diagnoses with the patient. I answered all of the patient's questions. The patient was satisfied with the care received and felt comfortable with the discharge plan and treatment plan. The patient will call their primary care physician within 24 hours to arrange follow-up and will return to the Emergency Department with any new, persistent or worsening symptoms. Heart Score/ECG Review #1 09/13/19 11:09 Twelve-lead EKG was performed and reviewed by me. Normal sinus rhythm, rate 67. Normal axis. No ST elevations. T wave inversions in III, aVF with flattened T waves in V3 -V6. No QT prolongation #2 09/13/19 12:15 Twelve-lead EKG was performed and reviewed by me. Normal sinus rhythm, rate 62. Normal axis. No ST elevations. Inverted T waves in 2 3 aVF as well as T wave flattening and inversions in V3 to V6. EKG is stable compared to EKG performed earlier today
--- NOTE | 2019-09-13 13:13 | EKG ---
Test Reason : Blood Pressure : / mmHG Vent. Rate : 062 BPM Atrial Rate : 062 BPM P-R Int : 132 ms QRS Dur : 080 ms QT Int : 418 ms P-R-T Axes : 025 004 -28 degrees QTc Int : 424 ms NORMAL SINUS RHYTHM WITH SINUS ARRHYTHMIA NONSPECIFIC T WAVE ABNORMALITY ABNORMAL ECG NO PREVIOUS ECGS AVAILABLE Confirmed by MD KARYN, TANIA ([id number]) on 09/13/2019 1:13:13 PM Referred By: Confirmed By:TANIA BOSS MD
[2019-09-13 14:10] VITALS: BP 110/59; PULSE 82; TEMP 98
--- NOTE | 2019-09-13 14:10 | EKG ---
Test Reason : Blood Pressure : / mmHG Vent. Rate : 067 BPM Atrial Rate : 067 BPM P-R Int : 136 ms QRS Dur : 084 ms QT Int : 444 ms P-R-T Axes : 036 008 -30 degrees QTc Int : 469 ms NORMAL SINUS RHYTHM NONSPECIFIC T WAVE ABNORMALITY PROLONGED QT ABNORMAL ECG NO PREVIOUS ECGS AVAILABLE Confirmed by MD Irizarry Edward ([id number]) on 09/13/2019 2:10:37 PM Referred By: Confirmed By:Wai Irizarry MD
== END 2019-09-13 14:10 | disposition home or self-care (01) ==
LOC: JER 08:52
PROC: 3E0337Z Introduction of Electrolytic and Water Balance Substance into Peripheral Vein, Percutaneous Approach (ICD-10-PCS; principal; 2019-09-13)
DX: R55 Syncope and collapse (principal); D64.9 Anemia, unspecified; Z90.79 Acquired absence of other genital organ(s); Z91.013 Allergy to seafood
CPT/HCPCS: 36415; 70450-TC; 73030-TC-RT-FY; 80053; 82550; 84484; 84703; 85025; 93005; 93010; 96360; 99284-25; J7030

== ENCOUNTER 2019-10-06 16:27 | Emergency (ER) | payer OTHER ==
[2019-10-06 16:39] VITALS: BP 105/73; PULSE 94; TEMP 98; BMI 21.9
--- NOTE | 2019-10-06 16:44 | PDOC ---
History of Present Illness - General Chief Complaint: Ear Problem Stated Complaint: EAR PAIN Time Seen by Provider: 10/06/19 16:44 History Source: Patient Exam Limitations: No Limitations - History of Present Illness Initial Comments: 10/06/19 16:59 Chief complaint: Ear pain Patient 33-year-old female with no significant medical problems. Patient had surgery, hysterectomy in July, patient afterwards had to be on Keflex which course a great diarrhea and syncopal episode and she was seen in the ER. Patient states that is all resolved but over the last 2 weeks she had pain in the right ear, then in the throat, now in the left ear. Patient denies any fever. Patient does not appear acutely ill and has no difficulty speaking GENERAL/CONSTITUTIONAL: No fever, weakness. dizziness HEAD, EYES, EARS, NOSE AND THROAT: No change in vision. Left ear pain, no discharge. No sore throat. CARDIOVASCULAR: No chest pain RESPIRATORY: No shortness of breath or cough GASTROINTESTINAL: No pain, nausea, vomiting, diarrhea or constipation GENITOURINARY: No dysuria MUSCULOSKELETAL: No neck or back pain SKIN: No rash NEUROLOGIC: No headache, vertigo, loss of consciousness, or loss of sensation. GENERAL: The patient is awake, alert, and fully oriented, in no acute distress. HEAD: Normal with no signs of trauma. EYES: Pupils equal, round and reactive to light, sclera anicteric, conjunctiva clear. ENT: Right ear with cerumen, no erythema to the canal, left ear with small pinpoint raised area anterior external that appears to be a pimple that was popped. Minimal erythema surrounding it, otherwise canal has cerumen, no erythema, unable to see TM. Pharynx: no erythema, no exudate, uvula midline NECK: supple CHEST: clear, nontender, rr ABD: soft, nontender BACK: no tenderness or signs of injury EXTREMITIES: Normal range of motion, no edema. NEUROLOGICAL: Normal speech, normal gait. SKIN: Warm, Dry Past History - Past Medical History Allergies/Adverse Reactions: Allergies Allergy/AdvReac Type Severity Reaction Status Date / Time shellfish derived AdvReac Verified 10/06/19 16:35 Home Medications: Ambulatory Orders Vitamins (Sjr) - 1 tab PO DAILY 05/14/19 Folic Acid 1 mg PO DAILY 08/01/19 Iron 18 mg PO DAILY 08/01/19 Acetaminophen [Tylenol] 325 mg PO Q4H PRN #14 capsule MDD 5 08/05/19 Ibuprofen 600 mg PO Q6H PRN #14 tablet 08/05/19 Neomycin/Polymyxn/Hc [Cortisporin Otic Suspenstion -] 5 drop Q6HPO #1 bottle 10/06/19 Anemia: Yes Asthma: No Cancer: No Cardiac Disorders: No CVA: No COPD: No CHF: No Dementia: No Diabetes: No GI Disorders: No Disorders: No HTN: No Hypercholesterolemia: No Liver Disease: No Seizures: No Thyroid Disease: No - Immunization History Immunization Up to Date: Yes - Psycho Social/Smoking Cessation Hx Smoking History: Never smoked Have you smoked in the past 12 months: No Hx Alcohol Use: No Drug/Substance Use Hx: No Substance Use Type: None Hx Substance Use Treatment: No *Physical Exam - Vital Signs Last Vital Signs Temp Pulse Resp BP Pulse Ox 98 F 94 H 16 105/73 100 10/06/19 16:35 10/06/19 16:35 10/06/19 16:35 10/06/19 16:35 10/06/19 16:35 Medical Decision Making - Medical Decision Making 10/06/19 17:02 Patient is 33-year-old female who had hysterectomy in July, was on Keflex, got severe diarrhea and passed out who now has left ear pain. She also had had pain to the right ear and to the throat. Patient has no concerning clinical findings, patient has cerumen to both ears and her pharynx has no signs of infection. Patient has a small area that looks like a pustule that opened on the left anterior aspect, external canal. Due to patient's history with antibiotics and clinical findings, will not start on an antibiotic although cannot see TMs. Patient will get eardrops, apply bacitracin to the small pustule and she will make an appointment with an ENT for further evaluation. Discussed issues, findings, results, applicable medications and treatments and follow-up. All these were understood and all questions were answered Discharge - Discharge Information Problems reviewed: Yes Clinical Impression/Diagnosis: Ear pain, left Condition: Stable Disposition: HOME - Admission No - Additional Discharge Information Prescriptions: Neomycin/Polymyxn/Hc [Cortisporin Otic Suspenstion -] 5 drop Q6HPO #1 bottle - Follow up/Referral Referrals: Dillon Nash MD [Staff Physician] - - Patient Discharge Instructions Additional Instructions: Apply the eardrops to the left ear, 5 drops 4 times a day for 5 days. Apply the bacitracin 2-3 times daily to the area where the pimple is. Return to the ER if this gets worse, you get fever or other concerns Follow the instructions given to you, go on [facility] website, follow the instructions, put your insurance information in, location, ear problem and pick a provider and an appointment. You need to have your ears cleaned out, there is a lot of hard wax in there and then you can have further evaluation. - Post Discharge Activity
== END 2019-10-06 17:10 | disposition home or self-care (01) ==
LOC: JERFT 16:27
DX: H92.02 Otalgia, left ear (principal); H61.23 Impacted cerumen, bilateral
CPT/HCPCS: 99284-25

== ENCOUNTER 2023-10-28 09:28 | Day surgery (SDC) | payer OTHER ==
[2023-10-28] MEDS: FERRIC CARBOXYMALTOSE 750 MG in SODIUM CHLORIDE 250 ML IVPB ONE (10:13)
[2023-10-28 16:23] VITALS: BP 99/46; PULSE 88; RESP 18; TEMP 98.3
== END 2023-10-28 11:22 | disposition home or self-care (01) ==
LOC: JONCNONCHE 09:28 → J7W 09:31 → JONCNONCHE 11:22
PROVIDERS: ATTEND Internal Medicine Hematology & Oncology
PROC: 3E033GC Introduction of Other Therapeutic Substance into Peripheral Vein, Percutaneous Approach (ICD-10-PCS; principal; 2023-10-28)
DX: D50.9 Iron deficiency anemia, unspecified (principal)
CPT/HCPCS: 96365; J1439

== ENCOUNTER 2023-11-04 11:05 | Day surgery (SDC) | payer OTHER ==
[2023-11-04] MEDS: FERRIC CARBOXYMALTOSE 750 MG in SODIUM CHLORIDE 250 ML IVPB ONE (11:25)
[2023-11-04 12:40] VITALS: PULSE 73; RESP 18; TEMP 98.3
[2023-11-04 12:43] VITALS: BP 97/61
== END 2023-11-04 12:30 | disposition home or self-care (01) ==
LOC: JONCNONCHE 11:05 → J7W 11:06 → JONCNONCHE 12:30
PROVIDERS: ATTEND Internal Medicine Hematology & Oncology
PROC: 3E033GC Introduction of Other Therapeutic Substance into Peripheral Vein, Percutaneous Approach (ICD-10-PCS; principal; 2023-11-04)
DX: D50.9 Iron deficiency anemia, unspecified (principal)
CPT/HCPCS: 96365; J1439

== ENCOUNTER 2025-03-22 14:06 | Day surgery (SDC) | payer OTHER ==
[2025-03-22 14:26] VITALS: RESP 18; TEMP 98.1
[2025-03-22] MEDS: FERRIC CARBOXYMALTOSE 750 MG in SODIUM CHLORIDE 250 ML IVPB ONE (14:48)
[2025-03-22 15:35] VITALS: BP 92/59; PULSE 70
== END 2025-03-22 15:50 | disposition home or self-care (01) ==
LOC: JONCCHEMO 14:06 → J7W 14:14 → JONCCHEMO 15:50
PROVIDERS: ATTEND Internal Medicine Hematology & Oncology
PROC: 3E033GC Introduction of Other Therapeutic Substance into Peripheral Vein, Percutaneous Approach (ICD-10-PCS; principal; 2025-03-22)
DX: D50.9 Iron deficiency anemia, unspecified (principal)
CPT/HCPCS: 96365; J1439